=== PATIENT | female | born 1930 | race Caucasian/White ===

== ENCOUNTER → 2016-07-21 | Outpatient (CLI) | payer MEDICARE ==
[~2016-07-21] MED LIST: COLCHICINE 0.60.6 MG PO; DIOVAN 80 MG TA80 MG PO; GLUCOPHAGE 500500 MG PO; ISORDIL TAB 3030 MG PO; LASIX20 MG PO; LIPITOR TAB 2020 MG PO; NEXIUM40 MG PO; NORVASC 5 MG TAB5 MG PO; PROZAC40 MG PO; TENORMIN 50 MG50 MG PO
[2016-07-21 07:34] LABS: HEMOGLOBIN 12.2 gm/dl (12.3-15.3); RED BLOOD COUNT 4.37 M/UL (4.00-5.10)
[2016-07-21 07:49] LABS: BUN/CREATININE RATIO 26 (0-10)
== END | disposition home or self-care (01) ==
LOC: CATH 06:37
PROVIDERS: Internal Medicine Interventional Cardiology
DX: I25.119 Atherosclerotic heart disease of native coronary artery with unspecified angina pectoris (principal); R94.39 Abnormal result of other cardiovascular function study; I10 Essential (primary) hypertension; E11.9 Type 2 diabetes mellitus without complications; E78.5 Hyperlipidemia, unspecified; M19.90 Unspecified osteoarthritis, unspecified site; Z87.891 Personal history of nicotine dependence; Z95.5 Presence of coronary angioplasty implant and graft; Z88.2 Allergy status to sulfonamides; Z79.84 Long term (current) use of oral hypoglycemic drugs; Z79.899 Other long term (current) drug therapy; Z79.82 Long term (current) use of aspirin
CPT/HCPCS: 80048; 82962; 85025; 85610; 85730; 93005; C1769; J0583; J1644; J2250; J3010; J7030; Q0163; Q9963

== ENCOUNTER → 2021-06-25 | Outpatient (CLI) | payer MEDICARE, OTHER ==
[~2021-06-25] MED LIST changes: +ASPIRIN CHEWABL81 MG PO; +CALCIUM500 MG PO; +GABAPENTIN300 MG PO; +IBANDRONATE SO150 MG PO; +ISOSORBIDE MONO60 MG PO; +NITROSTAT0.4 MG SL; +OMEPRAZOLE40 MG PO; +TRAMADOL HCL50 MG PO
[2021-06-25 13:57] LABS: HEMOGLOBIN 11.3 gm/dl (12.3-15.3); RED BLOOD COUNT 3.91 M/UL (4.00-5.10); WHITE BLOOD COUNT 8.7 K/UL (4.5-11.0)
== END ==
LOC: LAB 13:08
PROVIDERS: Internal Medicine Cardiovascular Disease
DX: R94.39 Abnormal result of other cardiovascular function study (principal); I25.119 Atherosclerotic heart disease of native coronary artery with unspecified angina pectoris; R07.89 Other chest pain; E78.5 Hyperlipidemia, unspecified; I10 Essential (primary) hypertension; R60.0 Localized edema; R00.1 Bradycardia, unspecified; E11.9 Type 2 diabetes mellitus without complications; R94.31 Abnormal electrocardiogram [ECG] [EKG]; I45.2 Bifascicular block; I51.7 Cardiomegaly
CPT/HCPCS: 36415; 80048; 83880; 85025; 85610; 85730; 93005

== ENCOUNTER → 2021-07-01 | Outpatient (CLI) | payer MEDICARE, OTHER | LOC: CATH 08:31 | DX: I25.119 Atherosclerotic heart disease of native coronary artery with unspecified angina pectoris (principal); I10 Essential (primary) hypertension; E11.9 Type 2 diabetes mellitus without complications; E78.5 Hyperlipidemia, unspecified; Z95.5 Presence of coronary angioplasty implant and graft; Z88.2 Allergy status to sulfonamides; Z79.82 Long term (current) use of aspirin; Z79.810 Long term (current) use of selective estrogen receptor modulators (SERMs); Z79.02 Long term (current) use of antithrombotics/antiplatelets; Z79.01 Long term (current) use of anticoagulants; Z79.891 Long term (current) use of opiate analgesic; Z79.83 Long term (current) use of bisphosphonates; Z87.891 Personal history of nicotine dependence; Z68.41 Body mass index [BMI] 40.0-44.9, adult | CPT/HCPCS: 82962; 99152; 99153; C1769; C1887; C1894; J0360; J1644; J2250; J3010; J7030; Q9967 ==